=== PATIENT | female | born 1965 | race Caucasian/White ===

== ENCOUNTER 2016-11-19 15:42 | Emergency (ER) | payer SELFPAY ==
[~2016-11-19] VITALS: Ht 165.1 cm; Wt 61.5 kg
[~2016-11-19 15:42] MED LIST: IMOD2TAB PO; TYLE3 PO
[2016-11-19 15:45] VITALS: BP 132/61; PULSE 92; RESP 16; TEMP 98.5; O2SAT 97
--- NOTE | 2016-11-19 16:07 | PD ---
HPI Chief Complaint: Skin Problem Time Seen by Provider: 16:04 Travel History International Travel<30 days: No Contact w/Intl Traveler<30days: No Traveled to known affect area: No History of Present Illness HPI Patient is a 51-year-old female presenting for evaluation of possible poison [place] rash. Patient states she was in the yard working one week ago and started developing his symptoms. Since then she's become increasingly more itchy and it has continued to spread. She denies any wheezing, fever, chills, shortness of breath. PFSH Past Medical History Medical History: Denies Significant Hx Hx Anticoagulant Therapy: No Cardiovascular Problems: No Chemotherapy: No Cerebrovascular Accident: No Diabetes: No Respiratory: No ?: Not : 2 Para: 2 Miscarriage: 0 : 0 Past Surgical History Hysterectomy: No Oral Surgery: Yes (DENTAL WORK) Other Surgery: Yes (PUNCTURE LUNG REPAIR) Social History Alcohol Use: Yes (OCCASIONAL) Tobacco Use: Yes (1-2 CIGARETTES ) Substance Use: No (DENIES) Allergies-Medications (Allergen,Severity, Reaction): Coded Allergies: penicillin G (Unverified Allergy, Severe, 11/19/16) RASH Reported Meds & Prescriptions Reported Meds & Active Scripts Active Tramadol (Tramadol HCl) 50 Mg Tab 50 Mg PO Q6H PRN Medrol Dosepak (Methylprednisolone) 4 Mg Dspk 4 Mg PO DIRECTED Per Pharmacist direction Bactrim DS (Sulfamethoxazole-Trimethoprim) 800-160 Mg Tab 1 Tab PO BID Clobetasol Topical (Clobetasol Propionate) 0.05% Cream 1 Applic TOPICAL BID Tylenol #3 (Acetaminophen/Codeine Phosphate) 300 Mg/30 Mg Tab 1 Tab PO Q4H PRN FOR PAIN Loperamide Hcl (Loperamide HCl) 2 Mg Cap 2 Mg PO Q4H PRN TAKE AFTER EACH LOOSE STOOL; MAXIMUM OF 8 CAPS/DAY Review of Systems Except as stated in HPI: all other systems reviewed are Neg Skin: Positive Rash, Positive Itching, Positive Lesions Physical Exam Narrative GENERAL: Well-developed, well-nourished, alert female. Resting comfortably in no acute distress. SKIN: Warm and dry. Scabbed, excoriated lesions to bilateral arms, abdomen and leg HEAD: Normocephalic. EYES: No scleral icterus. No injection or drainage. NECK: Supple, trachea midline. No JVD or lymphadenopathy. CARDIOVASCULAR: Regular rate and rhythm without murmurs, gallops, or rubs. RESPIRATORY: Breath sounds equal bilaterally. No accessory muscle use. GASTROINTESTINAL: Abdomen soft, non-tender, nondistended. MUSCULOSKELETAL: No cyanosis, or edema. BACK: Nontender without obvious deformity. No CVA tenderness. Data Data Last Documented VS Vital Signs Date Time Temp Pulse Resp B/P (MAP) Pulse Ox O2 Delivery O2 Flow Rate FiO2 11/19/16 15:45 98.5 92 16 132/61 (84) 97 Orders Orders Dexamethasone Inj (Decadron Inj) (11/19/16 16:15) Sulfamet-Trimeth Ds 800-160 Mg (Bactrim (11/19/16 16:15) [facility] Medical Decision Making Medical Screen Exam Complete: Yes Emergency Medical Condition: Yes Interpretation(s) Vital Signs Date Time Temp Pulse Resp B/P (MAP) Pulse Ox O2 Delivery O2 Flow Rate FiO2 11/19/16 15:45 98.5 92 16 132/61 (84) 97 Differential Diagnosis Contact dermatitis versus scabies versus poison [place] versus allergic reaction versus impetigo versus other Narrative Course Patient is a 51-year-old female presenting for evaluation of 1 week of rash to her arms and abdomen after being in contact with poison [place]. Patient's vital signs are stable, physical examination is consistent with contact dermatitis. Patient be given an injection of dexamethasone as well as a dose of Bactrim in the emergency department. She will be given prescriptions of topical steroid cream and oral antibiotics. Patient is encouraged to avoid scratching. She can also use topical calamine lotion. She was advised to avoid applying the lotion to the open areas. He is encouraged to return to emergency department for any new or worsening symptoms. She should follow-up with her primary doctor. Patient stable for discharge. Diagnosis Primary Impression: Contact dermatitis and eczema due to plant Referrals: Primary Care Physician Patient Instructions: Contact Dermatitis (ED), General Instructions Med/Other Pt SpecificInfo: Prescription(s) given Scripts Tramadol (Tramadol) 50 Mg Tab 50 MG PO Q6H Y for PAIN, #6 TAB 0 Refills Prov: Clare Ragland 11/19/16 Methylprednisolone Dosepak (Medrol Dosepak) 4 Mg Dspk 4 MG PO DIRECTED, #1 DSPK 0 Refills Per Pharmacist direction Prov: Clare Ragland 11/19/16 Sulfamethoxazole-Trimethoprim (Bactrim DS) 800-160 Mg Tab 1 TAB PO BID for Infection, #20 TAB 0 Refills Prov: Clare Ragland 11/19/16 Clobetasol Topical (Clobetasol Topical) 0.05% Cream 1 APPLIC TOPICAL BID, #30 GM 1 Refill Prov: Clare Ragland 11/19/16 Disposition: 01 DISCHARGE HOME Condition: Stable Clare Ragland Nov 19, 2016 16:07
[2016-11-19] MEDS ORDERED: MEDR4PAK PO (16:13)
[2016-11-19] MEDS ORDERED: BACT800T5 PO (16:13)
[2016-11-19] MEDS ORDERED: CLOB0.055 TOPICAL (16:13)
[2016-11-19] MEDS ORDERED: DEXAMETHASONE SOD PHOS 20 MG/5 ML VIAL IM ONE (16:15)
[2016-11-19] MEDS ORDERED: SULFAMETHOXAZOLE-TRIMETHOPRIM DS 800-160 MG TAB PO ONE (16:15)
[2016-11-19] MEDS ORDERED: TRAM50TA PO ×2 (16:16→16:21)
== END 2016-11-19 16:49 | disposition home or self-care (01) ==
LOC: EDTENT 15:42
DX: L25.5 Unspecified contact dermatitis due to plants, except food (principal); Z72.0 Tobacco use
CPT/HCPCS: 96372; 99284; J1100